=== PATIENT | male | born 1990 | race African-American/Black ===

== ENCOUNTER 2019-12-31 05:22 | Emergency (ER) | payer SELFPAY ==
[~2019-12-31] VITALS: Ht 182.9 cm; Wt 77.1 kg
[2019-12-31 06:19] VITALS: Ht 182.9 cm; Wt 77.1 kg
[2019-12-31 07:35] VITALS: BP 112/87
== END 2019-12-31 07:35 | disposition other institution (70) ==
LOC: ED 05:22
DX: S92.321A Displaced fracture of second metatarsal bone, right foot, initial encounter for closed fracture (principal); S92.331A Displaced fracture of third metatarsal bone, right foot, initial encounter for closed fracture; S92.341A Displaced fracture of fourth metatarsal bone, right foot, initial encounter for closed fracture; X58.XXXA Exposure to other specified factors, initial encounter; Y93.89 Activity, other specified; Y92.89 Other specified places as the place of occurrence of the external cause; Y99.8 Other external cause status
CPT/HCPCS: Q0092

== ENCOUNTER 2019-12-31 05:22 | Emergency (ER) | payer OTHER | END 2019-12-31 07:35 | disposition other institution (70) | LOC: ED 05:22 | DX: Z02.89 Encounter for other administrative examinations (principal) ==